=== PATIENT | female | born 1980 | race Caucasian/White ===

== ENCOUNTER 2016-09-14 01:36 | Emergency (ER) | payer OTHER ==
[~2016-09-14 01:36] MED LIST: IBUPROFEN800 MG PO; NO MEDICATIONS; PEN-VEE K PO; ROBITUSSIN100 MG/51 PO; ULTRAM PO; VICODIN 5/1 TAB 5/50 PO; ZITHROMAX PO; [UNRECOGNIZED DRUG - OTHER]
== END 2016-09-14 04:26 | disposition home or self-care (01) ==
LOC: SED 01:36
DX: F11.129 Opioid abuse with intoxication, unspecified (principal); F17.200 Nicotine dependence, unspecified, uncomplicated; Z88.5 Allergy status to narcotic agent
CPT/HCPCS: 99283